=== PATIENT | male | born 1965 | race American Indian/Alaskan Native ===

== ENCOUNTER 2018-11-05 10:04 | Day surgery (SDC) | payer OTHER ==
[~2018-11-05 10:04] MED LIST: NACL 0.9% 1000 ML 1,000 ML IV SCH
--- NOTE | 2018-11-05 13:54 | Anesthesia Day of Surgery ---
Anesthesia Day of Surgery - Day of Surgery Patient Examined: Yes Patient H&P Reviewed: Yes Patient is NPO: Yes Beta Blockers: No Cardiac Clearance: No Pulmonary Clearance: No
--- NOTE | 2018-11-05 13:54 | Anesthesia Consultation ---
Anesthesia Consult and Med Hx Date of service: 11/05/18 - Airway Anesthetic Teeth Evaluation: Good ROM Head & Neck: Adequate Mental/Hyoid Distance: Adequate Mallampati Class: Class II Intubation Access Assessment: Probably Good - Pulmonary Exam CTA: Yes - Cardiac Exam Cardiac Exam: RRR - Pre-Operative Health Status ASA Pre-Surgery Classification: ASA3 Proposed Anesthetic Plan: MAC - Pulmonary Hx Smoking: No Hx Respiratory Symptoms: No SOB: Yes (Exercise-induced asthma) Hx Sleep Apnea: Yes (CPAP ) - Cardiovascular System Hx Hypertension: Yes Hx Heart Attack/AMI: No Hx Cardia Arrhythmia: No - Central Nervous System Hx Seizures: Yes (at age 24 years old) Hx Back Pain: Yes Hx Psychiatric Problems: No - Endocrine Hx Renal Disease: No Hx Liver Disease: No Hx Thyroid Disease: No - Hematic Hx Anemia: Yes - Other Systems Hx Alcohol Use: No Hx Substance Use: No Hx Obesity: Yes - Additional Comments Anesthesia Medical History Comments: No GAC, No FHAC
[2018-11-05] MEDS ORDERED: DIPRIVAN 10 MG/ML IV ONE (14:26)
--- NOTE | 2018-11-05 14:44 | Operative Report ---
Operative Report Operative Report: Date: 11/05/2018 Operative Report: Date of procedure: 11/05/2018 Procedure: Esophagogastroduodenoscopy with multiple mucosal biopsies Attending physician: Zev Nur MD Distribution Warehouse Manager: Zev Nur MD Indication: Patient is a 53-year-old male who presented with a history of epigastric pain heartburn and indigestion with persistence of symptoms. An upper endoscopy is done to assess patient so that treatment may be directed based on the findings. Consent: Informed consent was obtained after advising the patient and family regarding nature of this procedure, its indications, potential benefits as well as possible complications including but not limited to bleeding perforation and adverse reaction to medication, infection as well as other cardiopulmonary complications. An informed written and verbal consent was then obtained after due opportunity was provided for questions and answers. Monitoring: Patient was monitored continuously with pulse oximetry and electrocardiographic recordings as well as blood pressure recordings. Vital signs remained stable throughout this procedure with no untoward events. Preoperative assessment: Patient was assessed immediately prior to this procedure for capacity to tolerate monitored anesthesia care and moderate sedation as well as general anesthesia. Patient's ASA classification is 2, Mallampati class is 2, Hyomental distance is 3. Instrument: [employer] video endoscope Medications: Propofol given intravenously in divided doses. For details please refer to anesthesia records. Description of procedure: Patient was placed in the left lateral decubitus position after achieving sedation, the endoscope was introduced into the esophagus under direct vision. It was then advanced beyond the esophagus into the stomach and then beyond the stomach into the duodenum and to the second portion of the duodenum. It was subsequently withdrawn with careful inspection of all mucosal surfaces with the following findings. Findings: In the esophagus, the Z line was irregular. There were linear erosions with erythema in the distal esophagus. There were erosions and erythema seen in the gastric antrum. Biopsies of the antrum were obtained for histopathology. The duodenum was normal to second portion. Impression: Irregular Z line Mild erosive esophagitis Gastric antral erosions with erythema. Plan: Follow pathology report. Continue treatment with proton pump inhibitors and direct additional treatment based on the pathology report.
--- NOTE | 2018-11-05 14:45 | Discharge Summary ---
Short Stay Discharge Plan Activity: advance as tolerated Weight Bearing Status: Weight Bear as Tolerated Diet: regular Follow up with: [facility] [Primary Care Provider] - 7 Days
[2018-11-05 15:23] VITALS: BP 130/81
== END 2018-11-05 10:05 | disposition home or self-care (01) ==
LOC: GIO 10:04
PROVIDERS: ATTEND Internal Medicine Gastroenterology
DX: K20.9 Esophagitis, unspecified (principal); K30 Functional dyspepsia; E78.00 Pure hypercholesterolemia, unspecified; I10 Essential (primary) hypertension; E66.9 Obesity, unspecified; G47.30 Sleep apnea, unspecified; E11.9 Type 2 diabetes mellitus without complications; M19.90 Unspecified osteoarthritis, unspecified site; F32.9 Major depressive disorder, single episode, unspecified; F41.9 Anxiety disorder, unspecified; Z88.8 Allergy status to other drugs, medicaments and biological substances; Z79.899 Other long term (current) drug therapy; Z68.31 Body mass index [BMI] 31.0-31.9, adult; Z79.84 Long term (current) use of oral hypoglycemic drugs; Z86.2 Personal history of diseases of the blood and blood-forming organs and certain disorders involving the immune mechanism
CPT/HCPCS: 43239; 82962; 88305; 88342; J2704; J7030

== ENCOUNTER 2021-12-10 07:35 | Outpatient (CLI) | payer OTHER ==
[2021-12-10 08:17] LABS: Blood Urea Nitrogen 13 mg/dL (9-20)
--- NOTE | 2021-12-10 09:51 | Cat Scan Report ---
CT ABDOMEN AND PELVIS WITH INTRAVENOUS CONTRAST INDICATION / CLINICAL INFORMATION: Z01.89. Epigastric pain radiating to back. Family history of pancr eatic cancer. TECHNIQUE: 100 cc Omnipaque [address] scans at this location are performed using CT d ose reduction for ALARA by means of automated exposure control. COMPARISON: None available. FINDINGS: ABDOMEN: The pancreas is normal in size without evidence of mass, ductal dilatation or peripancreatic inflammation. The liver, spleen, gallbladder, bile ducts and adrenal glands demonstrate no significa nt abnormality. There are bilateral simple renal cysts, the largest of which measures approximately 2 cm in the right mid kidney posteriorly. There is no evidence of bowel obstruction, wall thickening or free air. No a denopathy is present. No acute vascular abnormality is seen. The lung bases are clear. PELVIS: The distal ureters, urinary bladder, prostate gland and seminal vesicles are normal. I do not identify a hernia. A normal appendix is present and there is no evidence of diverticulitis. No abnor mal mass or fluid collection is seen. There are mild degenerative changes involving the spine without acute osseous abnormality. IMPRESSION: 1. No acute abnormality. 2. No abnormality of the pancreas is seen. Signer Name: Elfego Rasmussen MD Signed: 12/10/2021 9:47 AM Workstation Name: [id number]
== END 2021-12-10 07:36 | disposition home or self-care (01) ==
LOC: CT 07:35
DX: N28.1 Cyst of kidney, acquired (principal); M47.819 Spondylosis without myelopathy or radiculopathy, site unspecified
CPT/HCPCS: 36415; 74177; 82565; 84520; Q9967